=== PATIENT | female | born 1950 | race Caucasian/White ===

== ENCOUNTER 2017-12-06 14:02 | Observation (INO) | payer MEDICARE, OTHER ==
--- NOTE | 2017-12-06 14:14 | EDM.PDOC ---
ED HPI GENERAL MEDICAL PROBLEM - General Stated Complaint: PT WOULD LIKE TO BE SEEN, SPOKE TO NURSE Time Seen by Provider: 12/06/17 14:06 - History of Present Illness INITIAL COMMENTS - FREE TEXT/NARRATIVE: HISTORY AND PHYSICAL: History of present illness: The patient is a 67-year-old female who was sent from [facility] by Dr. Palmer as her blood work today revealed hypokalemia and he told us that he had been increasing her diuretics and was not surprised but want her to be re-seen. The patient presents to triage and is somewhat annoyed that she is here in the ED as she feels that she already was worked up at the clinic. The patient said that she had significant fluid retention which required her provider to give her more potent diuretics and she's never had a history of congestive heart failure but she has had a CABG. The patient currently is on 60 mg of Lasix twice a day and metolazone 2.5 mg daily but she says that the doctor told her to stop the metolazone today. She says that the fluid retention has significantly improved but she still feels like her abdomen is bloated. She also says that she feels profoundly weak and drained and very fatigued but is not passing out or blacking out but does feel lightheaded. She says that she has generalized weakness but no chest pain no shortness of breath no abdominal pain and no focal weakness or falls. She says that she has been feeling somewhat 5 in her head but she can't concentrate and all of these symptoms have been ongoing for the last 5 days. She said that her edema of the remainder of her body a significantly improved and when she initially was placed on the medications for diuresis she was putting out a good amount of urine output but lately it has not been as good. She also tells me that her diabetes is not well controlled over the last several weeks and she has an insulin pump but she has been having to give herself extra insulin for sugars in the 400s. She denies any urinary complaints and has been eating her normal diet but has not had much of an appetite of late. She says that her last hemoglobin C was greater than 3 months ago. Patient says that she does feel so drained that she doesn't feel that she can do her activities of daily living. Headache neck pain or back pain is not had fevers or chills. The patient had CBC and CMP are performed at [facility] and those results are indicated below Review of systems: As per history of present illness and below otherwise all systems reviewed and negative. Past medical history: As per history of present illness and as reviewed below otherwise noncontributory. Surgical history: As per history of present illness and as reviewed below otherwise noncontributory. Social history: No reported history of drug or alcohol abuse. Family history: As per history of present illness and as reviewed below otherwise noncontributory. Physical exam: General: Well-developed well-nourished overweight female who is nontoxic and moves easily in the ED but is very slow with these movements. Vital signs are noted by me HEENT: Atraumatic, normocephalic, pupils reactive, negative for conjunctival pallor or scleral icterus, mucous membranes tacky, throat clear, neck supple, nontender, trachea midline. Lungs: Clear to auscultation, breath sounds equal bilaterally, chest nontender. Slightly diminished breath sounds in the bases but no rales or wheezing or stridor Heart: S1S2, regular rate and rhythm no overt murmurs Abdomen: Soft, nondistended, nontender. Negative for masses or hepatosplenomegaly. Slightly hypoactive bowel sounds Pelvis: Stable nontender. Genitourinary: Deferred. Rectal: Deferred. Extremities: Atraumatic, negative for cords or calf pain. Neurovascular unremarkable. No gross pedal edema just trace bilaterally Neuro: Awake, alert, oriented. Cranial nerves II through XII unremarkable. Cerebellum unremarkable. Motor and sensory unremarkable throughout. Exam nonfocal. Diagnostics: Patient had CBC performed this morning at 11 AM which revealed a WBC count of 10.95 hemoglobin of 16.3 and platelet count of 243 with an insignificant differential, and a CMP which revealed a glucose of 270 7BUN of 32 creatinine of 1.06 sodium of 1:30 potassium of 2.4 and bicarbonate of 40. LFTs were within normal limits except for bilirubin of 1.3. Here in the ED I have ordered EKG BNP troponin TSH UA hemoglobin A1c magnesium level and chest x-ray Therapeutics: IV O2 monitor potassium orally and IV, small IV fluid bolus 1642: Dr Xie is aware of this case and except for observation admission. Patient is also aware of all results and is agreeable for observation admission Impression: Generalized weakness and fatigue with hypokalemia status post diuretic use; likely intravascular dehydration secondary to diuretic use Definitive disposition and diagnosis as appropriate pending reevaluation and review of above. - Related Data Allergies Allergy/AdvReac Type Severity Reaction Status Date / Time ciprofloxacin [From Cipro] Allergy Vomiting Verified 12/06/17 14:27 Home Meds: Home Meds Albuterol [Proair HFA] 2 puff INH Q4HR PRN 12/12/14 [History] Aspirin [Lamont Chewable] 81 mg PO DAILY 12/12/14 [History] FLUoxetine HCl [Fluoxetine] 40 mg PO DAILY 12/12/14 [History] Furosemide 40 mg PO BID 12/12/14 [History] Losartan Potassium 25 mg PO DAILY 12/12/14 [History] Metoprolol Succinate [Toprol XL] 12.5 mg PO DAILY 12/12/14 [History] Insulin Aspart [NovoLOG] 110 units SUBCUT DAILY 12/06/17 [History] Sertraline [Zoloft] 100 mg PO DAILY 12/06/17 [History] Past Medical History Other Genitourinary History: x 2 Other Endocrine/Metabolic History: goiter ED ROS GENERAL - Review of Systems Review Of Systems: ROS reveals no pertinent complaints other than HPI. ED EXAM, GENERAL - Physical Exam Exam: See Below (See dictation) Course - Vital Signs Last Recorded V/S: Last Vital Signs Temp 36.4 C 12/06/17 14:22 Pulse 80 12/06/17 14:22 Resp 18 12/06/17 14:22 BP 162/57 H 12/06/17 14:22 Pulse Ox 92 L 12/06/17 14:22 - Orders/Labs/Meds Orders: Active Orders 24 hr Category Date Time Status Patient Status [ADT] Stat ADT 12/06/17 16:14 Active Cardiac Monitoring [RC] . DIRECTED Care 12/06/17 14:35 Active EKG Documentation Completion [RC] STAT Care 12/06/17 14:35 Active Oxygen Therapy, ED [RC] ASDIRECTED Care 12/06/17 14:35 Active Pulse Oximetry [RC] ASDIRECTED Care 12/06/17 14:35 Active Chest 1V Frontal [CR] Stat Exams 12/06/17 14:36 Taken UA W/MICROSCOPIC [URIN] Stat Lab 12/06/17 14:36 Ordered Potassium Chloride 40 meq Med 12/06/17 14:45 Active Sodium Chloride 0.9% [Normal Saline] 250 ml IV ASDIRECTED Sodium Chloride 0.9% [Normal Saline] 250 ml Med 12/06/17 15:45 Active IV STAT Sodium Chloride 0.9% [Saline Flush] Med 12/06/17 14:36 Active 10 ml FLUSH ASDIRECTED PRN Sodium Chloride 0.9% [Saline Flush] Med 12/06/17 14:36 Active 2.5 ml FLUSH ASDIRECTED PRN Saline Lock Insert [OM.PC] Stat Oth 12/06/17 14:35 Ordered Medication Orders Potassium Chloride 40 meq/ (Sodium Chloride) 270 mls @ 70 mls/hr IV ASDIRECTED [place] Last Admin: 12/06/17 15:31 Dose: 70 mls/hr Sodium Chloride (Normal Saline) 250 mls @ 999 mls/hr IV STAT [place] Sodium Chloride (Saline Flush) 10 ml FLUSH ASDIRECTED PRN PRN Reason: Keep Vein Open Sodium Chloride (Saline Flush) 2.5 ml FLUSH ASDIRECTED PRN PRN Reason: Keep Vein Open Labs: Laboratory Tests 12/06/17 12/06/17 12/06/17 Range/Units 15:35 15:35 15:35 Hemoglobin A1c 7.3 H (4.5-6.2) % Magnesium 2.8 H (1.8-2.4) mg/dL Troponin I < 0.050 (0.000-0.056) ng/mL B-Natriuretic Peptide 49 (<100) PG/ML TSH 3rd Generation 1.27 (0.36-3.74) uIU/mL Meds: Medications Generic Name Dose Route Start Last Admin Trade Name Freq PRN Reason Stop Dose Admin Potassium Chloride 40 meq/ 270 mls @ 70 mls/hr 12/06/17 14:45 12/06/17 15:31 Sodium Chloride IV 70 mls/hr ASDIRECTED [place] Administration Sodium Chloride 250 mls @ 999 mls/hr 12/06/17 15:45 Normal Saline IV STAT [place] Sodium Chloride 10 ml 12/06/17 14:36 Saline Flush FLUSH ASDIRECTED PRN Keep Vein Open Sodium Chloride 2.5 ml 12/06/17 14:36 Saline Flush FLUSH ASDIRECTED PRN Keep Vein Open Discontinued Medications Generic Name Dose Route Start Last Admin Trade Name Freq PRN Reason Stop Dose Admin Potassium Chloride 40 meq 12/06/17 14:36 12/06/17 14:59 Klor-Con M20 PO 12/06/17 14:37 40 meq ONETIME ONE Administration Departure - Departure Time of Disposition: 16:21 Disposition: Refer to Observation Condition: Good Clinical Impression: Hypokalemia, Generalized weakness - Discharge Information Referrals: Sammy Palmer MD [Primary Care Provider] - - My Orders Last 24 Hours: My Active Orders 12/06/17 14:35 Cardiac Monitoring [RC] . DIRECTED EKG Documentation Completion [RC] STAT Oxygen Therapy, ED [RC] ASDIRECTED Pulse Oximetry [RC] ASDIRECTED Saline Lock Insert [OM.PC] Stat 12/06/17 14:36 Chest 1V Frontal [CR] Stat UA W/MICROSCOPIC [URIN] Stat Sodium Chloride 0.9% [Saline Flush] 10 ml FLUSH ASDIRECTED PRN Sodium Chloride 0.9% [Saline Flush] 2.5 ml FLUSH ASDIRECTED PRN 12/06/17 14:45 Potassium Chloride 40 meq Sodium Chloride 0.9% [Normal Saline] 250 ml IV ASDIRECTED 12/06/17 15:45 Sodium Chloride 0.9% [Normal Saline] 250 ml IV STAT 12/06/17 16:14 Patient Status [ADT] Stat - Assessment/Plan Last 24 Hours: My Active Orders 12/06/17 14:35 Cardiac Monitoring [RC] . DIRECTED EKG Documentation Completion [RC] STAT Oxygen Therapy, ED [RC] ASDIRECTED Pulse Oximetry [RC] ASDIRECTED Saline Lock Insert [OM.PC] Stat 12/06/17 14:36 Chest 1V Frontal [CR] Stat UA W/MICROSCOPIC [URIN] Stat Sodium Chloride 0.9% [Saline Flush] 10 ml FLUSH ASDIRECTED PRN Sodium Chloride 0.9% [Saline Flush] 2.5 ml FLUSH ASDIRECTED PRN 12/06/17 14:45 Potassium Chloride 40 meq Sodium Chloride 0.9% [Normal Saline] 250 ml IV ASDIRECTED 12/06/17 15:45 Sodium Chloride 0.9% [Normal Saline] 250 ml IV STAT 12/06/17 16:14 Patient Status [ADT] Stat
[2017-12-06] MEDS ORDERED: Sodium Chloride 0.9% 10 ML Syringe FLUSH PRN ×2 (14:36→20:08)
[2017-12-06] MEDS ORDERED: Potassium Chloride 20 MEQ Tab.ER PO ONE (14:36)
[2017-12-06] MEDS ORDERED: Sodium Chloride 0.9% 2.5 ML Syringe FLUSH PRN ×2 (14:36→20:08)
[2017-12-06] MEDS ORDERED: Sodium Chloride 0.9% 250 ML IV SCH (15:45)
[2017-12-06] MEDS ORDERED: Albuterol/Ipratropium 3.0-0.5 MG/3 ML Neb Soln NEB PRN (20:08)
[2017-12-06] MEDS ORDERED: Morphine 10 MG/ML Syringe IVPUSH PRN (20:08)
--- NOTE | 2017-12-06 20:22 | PCM.HP ---
H&P History of Present Illness - General Admit Problem/Dx: Admission Diagnosis/Problem Admission Diagnosis/Problem Hypokalemia - Related Data Allergies/Adverse Reactions: Allergies Allergy/AdvReac Type Severity Reaction Status Date / Time ciprofloxacin [From Cipro] Allergy Vomiting Verified 12/06/17 14:27 Home Medications: Home Meds Albuterol [Proair HFA] 2 puff INH Q4HR PRN 12/12/14 [History] Aspirin [Lamont Chewable] 81 mg PO DAILY 12/12/14 [History] FLUoxetine HCl [Fluoxetine] 40 mg PO DAILY 12/12/14 [History] Furosemide 40 mg PO BID 12/12/14 [History] Losartan Potassium 25 mg PO DAILY 12/12/14 [History] Metoprolol Succinate [Toprol XL] 12.5 mg PO DAILY 12/12/14 [History] Insulin Aspart [NovoLOG] 110 units SUBCUT DAILY 12/06/17 [History] Sertraline [Zoloft] 100 mg PO DAILY 12/06/17 [History] Past Medical History HEENT History: Reports: Impaired Vision Cardiovascular History: Reports: Bypass, Heart Murmur, Hypertension Respiratory History: Reports: Asthma, Sleep Apnea Other Genitourinary History: x 2 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: Other OB/BYN History: x2 Musculoskeletal History: Reports: Fibromyalgia, Osteoarthritis, Other (See Below ) Neurological History: Reports: Neuropathy, Diabetic Psychiatric History: Reports: Anxiety, Depression Endocrine/Metabolic History: Reports: Diabetes, Type I Other Endocrine/Metabolic History: goiter - Infectious Disease History Infectious Disease History: Reports: Chicken Pox - Past Surgical History Other Cardiovascular Surgeries/Procedures: open heart surgery 2001 Female Surgical History: Reports: Section Other Female Surgeries/Procedures: x2 Social & Family History - Family History Family Medical History: Noncontributory - Tobacco Use Smoking Status *Q: Former Smoker Used Tobacco, but Quit: Yes Month/Year Tobacco Last Used: 50 - Caffeine Use Caffeine Use: Reports: Coffee Other Caffeine Use: 1 cup - Recreational Drug Use Recreational Drug Use: No Exam - Vital Signs Vital Signs: Last Vital Signs Temp 97.1 F 12/06/17 20:00 Pulse 81 12/06/17 20:00 Resp 18 12/06/17 20:00 BP 129/55 L 12/06/17 20:00 Pulse Ox 98 12/06/17 20:00 Weight: 247 lb - Patient Data Lab Results Last 24 hrs: Laboratory Results - last 24 hr 12/06/17 12/06/17 12/06/17 Range/Units 15:35 15:35 15:35 Hemoglobin A1c 7.3 H (4.5-6.2) % Magnesium 2.8 H (1.8-2.4) mg/dL Troponin I < 0.050 (0.000-0.056) ng/mL B-Natriuretic Peptide 49 (<100) PG/ML TSH 3rd Generation 1.27 (0.36-3.74) uIU/mL Orders Last 24hrs: Active Orders 24 hr Category Date Time Status Patient Status [ADT] Stat ADT 12/06/17 16:14 Active Cardiac Monitoring [RC] CONTINUOUS Care 12/06/17 20:09 Active Cardiac Monitoring [RC] Q8H Care 12/06/17 14:35 Active Oxygen Therapy [RC] PRN Care 12/06/17 20:08 Active Pulse Oximetry [RC] ASDIRECTED Care 12/06/17 14:35 Active RT Aerosol Therapy [RC] ASDIRECTED Care 12/06/17 20:12 Active Up ad Eliane [RC] ASDIRECTED Care 12/06/17 20:08 Active Vital Signs [RC] Q4H Care 12/06/17 20:08 Active [employer] [employer] Diet [DIET] Diet 12/07/17 Breakfast Active Chest 1V Frontal [CR] Stat Exams 12/06/17 14:36 Taken Echo 2D wo Cont [US] Urgent Exams 12/06/17 20:17 Ordered CBC WITH AUTO DIFF [HEME] AM Lab 12/07/17 05:11 Ordered CBC WITH AUTO DIFF [HEME] AM Lab 12/08/17 05:11 Ordered CBC WITH AUTO DIFF [HEME] AM Lab 12/09/17 05:11 Ordered CBC WITH AUTO DIFF [HEME] AM Lab 12/10/17 05:11 Ordered COMPREHENSIVE METABOLIC PN,CMP [CHEM] AM Lab 12/07/17 05:11 Ordered COMPREHENSIVE METABOLIC PN,CMP [CHEM] AM Lab 12/08/17 05:11 Ordered COMPREHENSIVE METABOLIC PN,CMP [CHEM] AM Lab 12/09/17 05:11 Ordered COMPREHENSIVE METABOLIC PN,CMP [CHEM] AM Lab 12/10/17 05:11 Ordered MAGNESIUM [CHEM] AM Lab 12/07/17 05:11 Ordered MAGNESIUM [CHEM] AM Lab 12/08/17 05:11 Ordered MAGNESIUM [CHEM] AM Lab 12/09/17 05:11 Ordered PHOSPHORUS [CHEM] AM Lab 12/07/17 05:11 Ordered PHOSPHORUS [CHEM] AM Lab 12/08/17 05:11 Ordered PHOSPHORUS [CHEM] AM Lab 12/09/17 05:11 Ordered PHOSPHORUS [CHEM] AM Lab 12/10/17 05:11 Ordered UA W/MICROSCOPIC [URIN] Stat Lab 12/06/17 14:36 Ordered Albuterol/Ipratropium [DuoNeb 3.0-0.5 MG/3 ML] Med 12/06/17 20:08 Active 3 ml NEB Q4HRRT PRN Aspirin Med 12/07/17 09:00 Active 81 mg PO DAILY Enoxaparin [Lovenox] Med 12/06/17 20:15 Ordered 40 mg SUBCUT Q24H FLUoxetine [PROzac] Med 12/07/17 09:00 Active 40 mg PO DAILY Insulin Aspart [NovoLOG] Med 12/07/17 09:00 Active 110 unit SUBCUT DAILY Losartan [Cozaar] Med 12/07/17 09:00 Active 25 mg PO DAILY Metoprolol Succinate [Toprol XL] Med 12/07/17 09:00 Active 12.5 mg PO DAILY Morphine Med 12/06/17 20:08 Active 2 mg IVPUSH Q2H PRN Potassium Chloride 40 meq Med 12/06/17 14:45 Active Sodium Chloride 0.9% [Normal Saline] 250 ml IV ASDIRECTED Sertraline [Zoloft] Med 12/07/17 09:00 Active 100 mg PO DAILY Sodium Chloride 0.9% [Normal Saline] 250 ml Med 12/06/17 15:45 Active IV STAT Sodium Chloride 0.9% [Saline Flush] Med 12/06/17 14:36 Active 10 ml FLUSH ASDIRECTED PRN Sodium Chloride 0.9% [Saline Flush] Med 12/06/17 20:08 Active 10 ml FLUSH ASDIRECTED PRN Sodium Chloride 0.9% [Saline Flush] Med 12/06/17 14:36 Active 2.5 ml FLUSH ASDIRECTED PRN Sodium Chloride 0.9% [Saline Flush] Med 12/06/17 20:08 Active 2.5 ml FLUSH ASDIRECTED PRN Peripheral IV Insertion Adult [OM.PC] Routine Oth 12/06/17 20:08 Ordered Saline Lock Insert [OM.PC] Stat Oth 12/06/17 14:35 Ordered Sequential Compression Device [OM.PC] Per Unit Routine Oth 12/06/17 20:09 Ordered Resuscitation Status Routine Resus Stat 12/06/17 20:08 Ordered Medication Orders Albuterol/Ipratropium (Duoneb 3.0-0.5 Mg/3 Ml) 3 ml NEB Q4HRRT PRN PRN Reason: Shortness Of Breath/wheezing Aspirin (Aspirin) 81 mg PO DAILY [place] Enoxaparin Sodium (Lovenox) 40 mg SUBCUT Q24H [place] Fluoxetine HCl (Prozac) 40 mg PO DAILY [facility] Potassium Chloride 40 meq/ (Sodium Chloride) 270 mls @ 70 mls/hr IV ASDIRECTED [place] Last Admin: 12/06/17 15:31 Dose: 70 mls/hr Sodium Chloride (Normal Saline) 250 mls @ 999 mls/hr IV STAT [facility] Insulin Aspart (Novolog) 110 unit SUBCUT DAILY [facility] Losartan Potassium (Cozaar) 25 mg PO DAILY [facility] Metoprolol Succinate (Toprol Xl) 12.5 mg PO DAILY [facility] Morphine Sulfate (Morphine) 2 mg IVPUSH Q2H PRN PRN Reason: Pain (severe 7-10) Stop: 12/07/17 20:10 Sertraline HCl (Zoloft) 100 mg PO DAILY [place] Sodium Chloride (Saline Flush) 10 ml FLUSH ASDIRECTED PRN PRN Reason: Keep Vein Open Sodium Chloride (Saline Flush) 2.5 ml FLUSH ASDIRECTED PRN PRN Reason: Keep Vein Open Sodium Chloride (Saline Flush) 10 ml FLUSH ASDIRECTED PRN PRN Reason: Keep Vein Open Sodium Chloride (Saline Flush) 2.5 ml FLUSH ASDIRECTED PRN PRN Reason: Keep Vein Open
[2017-12-06] MEDS ORDERED: Enoxaparin 40 MG/0.4 ML Syringe SUBCUT SCH (22:00)
[2017-12-06] MEDS ORDERED: Nitroglycerin 2% Oint 1 GM UD Packet TOP PRN (22:04)
[2017-12-06] MEDS ORDERED: Sodium Chloride 0.9% 1,000 ML IV SCH (22:30)
[2017-12-06] MEDS ORDERED: Sodium Chloride 0.9% with KCl 1,000 ML ONE (23:43)
[2017-12-06] MEDS: Sodium Chloride 0.9% with KCl 1,000 ML IV SCH ×2 (23:47)
--- NOTE | 2017-12-07 01:36 | HP ---
DATE OF : 1950 PRIMARY CARE PHYSICIAN: Sammy Palmer MD HISTORY OF PRESENT ILLNESS: The patient is a 67-year-old female with past medical history of diabetes mellitus type 1 for 55 years, presented to hospital because she states she is feeling very weak for the past 5 days, and she is very fatigued. She is able only to get out of bed to eat and goes back in the bed and sleeps. The patient lost about 20 pounds in the past 20 days. She says she was on chronic Lasix 20 mg a day for many years, but few weeks ago, she got significant swelling of the legs, and she went to her primary care physician, who increased Lasix and started her on Lasix 60 mg p.o. b.i.d. with metolazone 2.5 mg daily. Also, she was given potassium supplementation. The patient also states her mind is foggy, and she stumbles and has neuropathy. PAST MEDICAL HISTORY: The patient has type 1 diabetes. She has a history of coronary artery disease. She is status post CABG in 2001 at age 51. She has sleep apnea, and she is on CPAP at night. The patient says that she had a stress test with her community marketing manager in [place] and was told that her stress test was good. This was done at the beginning of the year. ALLERGIES: . She has vomiting with ciprofloxacin. PAST SURGICAL HISTORY: She had 2 C-sections, 8 hand surgeries, carpal tunnel syndrome surgery, trigger finger surgery, and tonsillectomy when she was in the third grade. SOCIAL HISTORY: She used to smoke for 5 years only and quit this at age 52. Alcohol use, none. Drug use, none. FAMILY HISTORY: Her mom at age 89 and her father at 91. Her father had diabetes mellitus type 2 and myocardial infarction. REVIEW OF SYSTEMS: A 12-point review of systems is negative except as in history of present illness. DIAGNOSTIC DATA: Her EKG shows sinus rate at 75, probable right atrial enlargement, P more than 50 milliseconds and less than 0.1 mV in V1, right axis deviation, and minimal ST depression in inferior leads. Prolonged QT at 547. Chest x-ray, no active cardiopulmonary disease. LABORATORY DATA: At admission, her WBC was 10.95, hemoglobin 16.3, hematocrit 48.7, and platelet count is 243, neutrophils out of 73%, monocytes out of 8.9%, lymphocytes 16.8, and eosinophils out of 0.8%. Glucose level 277, calcium 9.5, BUN 32, creatinine 1.06 with GFR 52, sodium level 130, potassium level 2.4, chloride 81, CO2 of 40, and anion gap 9. Total protein 7.2, albumin level 4.1, alkaline phosphatase 68, ALT 12, AST 15, and bilirubin total 1.3. The patient also had hemoglobin A1c done in the emergency room, which showed A1c 7.2. Magnesium was 2.8. Troponin less than 0.05. BNP was 49, and TSH was 1.27. MEDICATIONS AT HOME: The patient at home is on: 1. Aspirin 81 mg p.o. daily. 2. Furosemide 60 mg twice a day. 3. Insulin aspart, on insulin pump. 4. Losartan 25 mg p.o. daily. 5. Metolazone 2.5 mg p.o. daily. 6. Metoprolol 12.5 mg everyday. 7. Potassium chloride 20 mEq oral tablet extended release. 8. Sertraline 100 mg tablet p.o. daily. PHYSICAL EXAMINATION: VITAL SIGNS: At admission, her temperature 97.5, pulse 80, blood pressure 162/57, respiratory rate 18, and oxygen saturation was 92%. HEENT: The patient's head is atraumatic and normocephalic. Pupils equally reactive to light. NECK: Supple. No thyromegaly. No lymphadenopathy. HEART: S1 and S2. Regular rhythm and rate. No murmur. LUNGS: Clear to auscultation bilateral. ABDOMEN: Soft and nontender. Positive bowel sounds. The patient has insulin pump attached to her abdomen. EXTREMITIES: No edema. SKIN: Decreased turgor of the skin. ASSESSMENT AND PLAN: 1.Dehydration with hemoconcentration. We will start the patient on IV fluids normal saline with 40 mEq of potassium chloride, and we will follow up potassium level in the morning 2. .Hypokalemia. The patient received in the emergency room potassium chloride 40 mEq p.o., and she was started on IV fluids with 40 mEq of potassium chloride IV. We will continue the patient with normal saline with 40 mEq of potassium chloride IV. We will follow up potassium level in the morning. The patient also will be supplemented with oral potassium chloride. We will order lipid profile in the morning because the patient has coronary artery disease and her vitamin B12 level. 3. Coronary artery disease. We will continue the patient with aspirin 81 mg p.o. daily. We will continue the patient with losartan 25 mg p.o. daily and metoprolol 12.5 mg p.o. daily. We will order cardiac echo. 4. For ischemia on EKG, the patient will be given nitroglycerin paste, and she will be monitored in telemetry. The patient to have Cardiology f/up because of abnormal EKG. 5. History of fluid overload We will check cardiac echo to rule out pulmonary hypertension or right heart failure. Also, we will do abdominal ultrasound to evaluate liver. 6. For deep venous thrombosis prophylaxis, the patient will be given Lovenox 40 mg subcutaneous q.24 hours. ANTOPET / MODL /[id number] MTDD
[2017-12-07] MEDS ORDERED: Losartan 50 MG Tab PO SCH (09:00)
[2017-12-07] MEDS ORDERED: Aspirin 81 MG Tab.Chew PO SCH (09:00)
[2017-12-07] MEDS ORDERED: Sertraline 100 MG Tab PO SCH (09:00)
[2017-12-07] MEDS ORDERED: Insulin Aspart 100 Units/ML 3 ML Pen SUBCUT SCH (09:00)
[2017-12-07] MEDS ORDERED: FLUoxetine 20 MG Cap PO SCH (09:00)
[2017-12-07] MEDS ORDERED: Metoprolol Succinate 25 MG Tab.ER PO SCH (09:00)
[2017-12-07] MEDS ORDERED: Sodium Chloride 0.9% with KCl 1,000 ML ONE (10:08)
[2017-12-07] MEDS: Sodium Chloride 0.9% with KCl 1,000 ML IV SCH ×2 (10:11)
[2017-12-07] MEDS ORDERED: Potassium Chloride 20 MEQ Tab.ER PO ONE (11:44)
[2017-12-07] MEDS ORDERED: Sodium Chloride 0.9% with KCl 1,000 ML IV SCH (11:45)
[2017-12-07 14:40] VITALS: BP 115/56
--- NOTE | 2017-12-07 15:00 | PCM.PN ---
- Review of Systems Systems Review Comment:: feeling better, feeling stronger. - Patient Data Vitals - Most Recent: Last Vital Signs Temp 37.0 C 12/07/17 12:00 Pulse 67 12/07/17 12:00 Resp 16 12/07/17 12:00 BP 115/56 L 12/07/17 12:00 Pulse Ox 96 12/07/17 12:00 Weight - Most Recent: 62.6 kg I&O - Last 24 Hours: Intake & Output 12/06/17 12/07/17 12/07/17 22:59 06:59 14:59 Intake Total 600 Output Total 150 Balance 450 Lab Results Last 24 Hours: Laboratory Results - last 24 hr 12/06/17 12/06/17 12/06/17 Range/Units 15:35 15:35 15:35 WBC (4.0-11.0) K/uL RBC (4.30-5.90) M/uL Hgb (12.0-16.0) g/dL Hct (36.0-46.0) % MCV (80.0-98.0) fL MCH (27.0-32.0) pg MCHC (31.0-37.0) g/dL RDW Std Deviation (28.0-62.0) fl RDW Coeff of Judd (11.0-15.0) % Plt Count (150-400) K/uL MPV (7.40-12.00) fL Neut % (Auto) (48.0-80.0) % Lymph % (Auto) (16.0-40.0) % [place] % (Auto) (0.0-15.0) % Eos % (Auto) (0.0-7.0) % Baso % (Auto) (0.0-1.5) % Neut # (Auto) (1.4-5.7) K/uL Lymph # (Auto) (0.6-2.4) K/uL [place] # (Auto) (0.0-0.8) K/uL Eos # (Auto) (0.0-0.7) K/uL Baso # (Auto) (0.0-0.1) K/uL Nucleated RBC % /100WBC Nucleated RBCs # K/uL Sodium (136-145) mmol/L Potassium (3.5-5.1) mmol/L Chloride (98-107) mmol/L Carbon Dioxide (21.0-32.0) mmol/L BUN (7.0-18.0) mg/dL Creatinine (0.6-1.0) mg/dL Est Cr Clr Drug Dosing mL/min Estimated GFR (MDRD) ml/min Glucose (74-106) mg/dL POC Glucose (60-110) mg/dL Hemoglobin A1c 7.3 H (4.5-6.2) % Calcium (8.5-10.1) mg/dL Phosphorus (2.6-4.7) mg/dL Magnesium 2.8 H (1.8-2.4) mg/dL Total Bilirubin (0.2-1.0) mg/dL AST (15-37) IU/L ALT (14-63) IU/L Alkaline Phosphatase (46-116) U/L Troponin I < 0.050 (0.000-0.056) ng/mL B-Natriuretic Peptide 49 (<100) PG/ML Total Protein (6.4-8.2) g/dL Albumin (3.4-5.0) g/dL Globulin (2.0-3.5) g/dL Albumin/Globulin Ratio (1.3-2.8) TSH 3rd Generation 1.27 (0.36-3.74) uIU/mL Urine Color Urine Appearance Urine pH (5.0-8.0) Ur Specific [place] (1.001-1.035) Urine Protein (NEGATIVE) mg/dL Urine Glucose (UA) (NEGATIVE) mg/dL Urine Ketones (NEGATIVE) mg/dL Urine Occult Blood (NEGATIVE) Urine Nitrite (NEGATIVE) Urine Bilirubin (NEGATIVE) Urine Urobilinogen (<2.0) EU/dL Ur Leukocyte Esterase (NEGATIVE) Urine RBC (0-2/HPF) Urine WBC (0-5/HPF) Ur Epithelial Cells (NONE-FEW) Urine Bacteria (NEGATIVE) 12/06/17 12/07/17 12/07/17 Range/Units 21:46 06:48 06:48 WBC 9.70 (4.0-11.0) K/uL RBC 4.61 (4.30-5.90) M/uL Hgb 15.0 (12.0-16.0) g/dL Hct 43.6 (36.0-46.0) % MCV 94.6 (80.0-98.0) fL MCH 32.5 H (27.0-32.0) pg MCHC 34.4 (31.0-37.0) g/dL RDW Std Deviation 44.6 (28.0-62.0) fl RDW Coeff of Judd 13 (11.0-15.0) % Plt Count 186 (150-400) K/uL MPV 11.60 (7.40-12.00) fL Neut % (Auto) 56.3 (48.0-80.0) % Lymph % (Auto) 25.5 (16.0-40.0) % [place] % (Auto) 15.1 H (0.0-15.0) % Eos % (Auto) 2.4 (0.0-7.0) % Baso % (Auto) 0.7 (0.0-1.5) % Neut # (Auto) 5.5 (1.4-5.7) K/uL Lymph # (Auto) 2.5 H (0.6-2.4) K/uL [place] # (Auto) 1.5 H (0.0-0.8) K/uL Eos # (Auto) 0.2 (0.0-0.7) K/uL Baso # (Auto) 0.1 (0.0-0.1) K/uL Nucleated RBC % 0.0 /100WBC Nucleated RBCs # 0 K/uL Sodium 137 (136-145) mmol/L Potassium 3.0 L (3.5-5.1) mmol/L Chloride 97 L (98-107) mmol/L Carbon Dioxide 39.7 H (21.0-32.0) mmol/L BUN 28 H (7.0-18.0) mg/dL Creatinine 1.0 (0.6-1.0) mg/dL Est Cr Clr Drug Dosing 50.39 mL/min Estimated GFR (MDRD) 55.6 ml/min Glucose 63 L (74-106) mg/dL POC Glucose 409 H (60-110) mg/dL Hemoglobin A1c (4.5-6.2) % Calcium 8.9 (8.5-10.1) mg/dL Phosphorus 3.0 (2.6-4.7) mg/dL Magnesium 2.8 H (1.8-2.4) mg/dL Total Bilirubin 0.9 (0.2-1.0) mg/dL AST 12 L (15-37) IU/L ALT 16 (14-63) IU/L Alkaline Phosphatase 66 (46-116) U/L Troponin I (0.000-0.056) ng/mL B-Natriuretic Peptide (<100) PG/ML Total Protein 6.7 (6.4-8.2) g/dL Albumin 3.1 L (3.4-5.0) g/dL Globulin 3.6 H (2.0-3.5) g/dL Albumin/Globulin Ratio 0.9 L (1.3-2.8) TSH 3rd Generation (0.36-3.74) uIU/mL Urine Color Urine Appearance Urine pH (5.0-8.0) Ur Specific [place] (1.001-1.035) Urine Protein (NEGATIVE) mg/dL Urine Glucose (UA) (NEGATIVE) mg/dL Urine Ketones (NEGATIVE) mg/dL Urine Occult Blood (NEGATIVE) Urine Nitrite (NEGATIVE) Urine Bilirubin (NEGATIVE) Urine Urobilinogen (<2.0) EU/dL Ur Leukocyte Esterase (NEGATIVE) Urine RBC (0-2/HPF) Urine WBC (0-5/HPF) Ur Epithelial Cells (NONE-FEW) Urine Bacteria (NEGATIVE) 12/07/17 Range/Units 07:00 WBC (4.0-11.0) K/uL RBC (4.30-5.90) M/uL Hgb (12.0-16.0) g/dL Hct (36.0-46.0) % MCV (80.0-98.0) fL MCH (27.0-32.0) pg MCHC (31.0-37.0) g/dL RDW Std Deviation (28.0-62.0) fl RDW Coeff of Judd (11.0-15.0) % Plt Count (150-400) K/uL MPV (7.40-12.00) fL Neut % (Auto) (48.0-80.0) % Lymph % (Auto) (16.0-40.0) % [place] % (Auto) (0.0-15.0) % Eos % (Auto) (0.0-7.0) % Baso % (Auto) (0.0-1.5) % Neut # (Auto) (1.4-5.7) K/uL Lymph # (Auto) (0.6-2.4) K/uL [place] # (Auto) (0.0-0.8) K/uL Eos # (Auto) (0.0-0.7) K/uL Baso # (Auto) (0.0-0.1) K/uL Nucleated RBC % /100WBC Nucleated RBCs # K/uL Sodium (136-145) mmol/L Potassium (3.5-5.1) mmol/L Chloride (98-107) mmol/L Carbon Dioxide (21.0-32.0) mmol/L BUN (7.0-18.0) mg/dL Creatinine (0.6-1.0) mg/dL Est Cr Clr Drug Dosing mL/min Estimated GFR (MDRD) ml/min Glucose (74-106) mg/dL POC Glucose (60-110) mg/dL Hemoglobin A1c (4.5-6.2) % Calcium (8.5-10.1) mg/dL Phosphorus (2.6-4.7) mg/dL Magnesium (1.8-2.4) mg/dL Total Bilirubin (0.2-1.0) mg/dL AST (15-37) IU/L ALT (14-63) IU/L Alkaline Phosphatase (46-116) U/L Troponin I (0.000-0.056) ng/mL B-Natriuretic Peptide (<100) PG/ML Total Protein (6.4-8.2) g/dL Albumin (3.4-5.0) g/dL Globulin (2.0-3.5) g/dL Albumin/Globulin Ratio (1.3-2.8) TSH 3rd Generation (0.36-3.74) uIU/mL Urine Color YELLOW Urine Appearance SLT CLOUDY Urine pH 7.0 (5.0-8.0) Ur Specific [place] 1.010 (1.001-1.035) Urine Protein NEGATIVE (NEGATIVE) mg/dL Urine Glucose (UA) 500 H (NEGATIVE) mg/dL Urine Ketones NEGATIVE (NEGATIVE) mg/dL Urine Occult Blood NEGATIVE (NEGATIVE) Urine Nitrite NEGATIVE (NEGATIVE) Urine Bilirubin NEGATIVE (NEGATIVE) Urine Urobilinogen 1.0 (<2.0) EU/dL Ur Leukocyte Esterase NEGATIVE (NEGATIVE) Urine RBC 0-2 (0-2/HPF) Urine WBC 1-2 (0-5/HPF) Ur Epithelial Cells FEW (NONE-FEW) Urine Bacteria 3+ H (NEGATIVE) Med Orders - Current: Current Medications Albuterol/Ipratropium (Duoneb 3.0-0.5 Mg/3 Ml) 3 ml NEB Q4HRRT PRN PRN Reason: Shortness Of Breath/wheezing Aspirin (Aspirin) 81 mg PO DAILY [facility] Last Admin: 12/07/17 08:22 Dose: 81 mg Enoxaparin Sodium (Lovenox) 40 mg SUBCUT Q24H [facility] Last Admin: 12/06/17 22:39 Dose: 40 mg Fluoxetine HCl (Prozac) 40 mg PO DAILY [facility] Last Admin: 12/07/17 08:24 Dose: 40 mg Sodium Chloride (Normal Saline) 250 mls @ 999 mls/hr IV STAT [facility] Potassium Chloride/Sodium Chloride (Normal Saline With 40 Meq Kcl) 1,000 mls @ 100 mls/hr IV ASDIRECTED [facility] Last Infusion: 12/07/17 12:27 Dose: 150 mls/hr Potassium Chloride/Sodium Chloride (Normal Saline With 40 Meq Kcl) 1,000 mls @ 150 mls/hr IV ASDIRECTED [facility] Stop: 12/07/17 18:24 Last Admin: 12/07/17 12:19 Dose: Not Given Losartan Potassium (Cozaar) 25 mg PO DAILY [facility] Last Admin: 12/07/17 08:23 Dose: 25 mg Metoprolol Succinate (Toprol Xl) 12.5 mg PO DAILY [facility] Last Admin: 12/07/17 09:00 Dose: 12.5 mg Miscellaneous Information (Remove Patch) 1 ea TRDERM Q6H PRN PRN Reason: IF NITRO OINT APPLIED Morphine Sulfate (Morphine) 2 mg IVPUSH Q2H PRN PRN Reason: Pain (severe 7-10) Stop: 12/07/17 20:10 Nitroglycerin (Nitro-Bid 2%) 1 gm TOP Q6H PRN PRN Reason: Chest Pain Sertraline HCl (Zoloft) 100 mg PO DAILY [facility] Last Admin: 12/07/17 08:23 Dose: 100 mg Sodium Chloride (Saline Flush) 10 ml FLUSH ASDIRECTED PRN PRN Reason: Keep Vein Open Sodium Chloride (Saline Flush) 2.5 ml FLUSH ASDIRECTED PRN PRN Reason: Keep Vein Open Sodium Chloride (Saline Flush) 10 ml FLUSH ASDIRECTED PRN PRN Reason: Keep Vein Open Sodium Chloride (Saline Flush) 2.5 ml FLUSH ASDIRECTED PRN PRN Reason: Keep Vein Open Discontinued Medications Potassium Chloride 40 meq/ (Sodium Chloride) 270 mls @ 70 mls/hr IV ASDIRECTED [facility] Last Admin: 12/06/17 15:31 Dose: 70 mls/hr Sodium Chloride (Normal Saline) 1,000 mls @ 50 mls/hr IV ASDIRECTED [facility] Last Admin: 12/06/17 22:41 Dose: 50 mls/hr Potassium Chloride/Sodium Chloride (Normal Saline With 40 Meq Kcl) Confirm Administered Dose 1,000 mls @ as directed .ROUTE .STK-MED ONE Stop: 12/06/17 23:44 Last Admin: 12/06/17 23:48 Dose: Not Given Potassium Chloride/Sodium Chloride (Normal Saline With 40 Meq Kcl) Confirm Administered Dose 1,000 mls @ as directed .ROUTE .STK-MED ONE Stop: 12/07/17 10:09 Last Admin: 12/07/17 10:29 Dose: Not Given Potassium Chloride (Klor-Con M20) 40 meq PO ONETIME ONE Stop: 12/06/17 14:37 Last Admin: 12/06/17 14:59 Dose: 40 meq Potassium Chloride (Klor-Con M20) 40 meq PO ONETIME ONE Stop: 12/07/17 11:45 Last Admin: 12/07/17 13:07 Dose: 40 meq - Exam General: Alert, Oriented Neck: Supple Lungs: Clear to Auscultation, Normal Respiratory Effort Cardiovascular: Regular Rate, Regular Rhythm GI/Abdominal Exam: Normal Bowel Sounds, Soft, Non-Tender Extremities: Non-Tender, No Pedal Edema Skin: Warm, Dry, Intact Neurological: No New Focal Deficit - Problem List Review Problem List Initiated/Reviewed/Updated: Yes - My Orders Last 24 Hours: My Active Orders 12/07/17 11:45 Accu Check [Blood Glucose Check, Bedside] [RC] TIDMEALS Sodium Chloride 0.9% with KCl [Normal Saline with 40 mEq KCl] 1,000 ml IV ASDIRECTED 12/07/17 12:21 URINALYSIS W/MICROSCOPIC [UA W/MICROSCOPIC] [URIN] Routine 12/07/17 17:00 BASIC METABOLIC PANEL,BMP [CHEM] Routine - Plan Plan:: 67 yo female admitted for hypokalemia, dehydration and contraction alkalosis. Her diuretics were discontinued. She was given IV and PO potassium last night. Her potassium has improved. She has insulin pump so will be monitor blood glucose.
--- NOTE | 2017-12-07 22:41 | PCM.DCSUM1 ---
Discharge Summary - Discharge Data Discharge Disposition: Home, Self-Care 01 Condition: Stable - Discharge Plan Home Medications: Home Meds Albuterol [Proair HFA] 2 puff INH Q4HR PRN 12/12/14 [History] Aspirin [Lamont Chewable] 81 mg PO DAILY 12/12/14 [History] FLUoxetine HCl [Fluoxetine] 40 mg PO DAILY 12/12/14 [History] Losartan Potassium 25 mg PO DAILY 12/12/14 [History] Metoprolol Succinate [Toprol XL] 12.5 mg PO DAILY 12/12/14 [History] Insulin Aspart [NovoLOG] 110 units SUBCUT DAILY 12/06/17 [History] Sertraline [Zoloft] 100 mg PO DAILY 12/06/17 [History] Patient Handouts: Hypokalemia Referrals: [facility] [Outside] [facility] [Outside] Sergio Guzman MD [Physician] - Sammy Palmer MD [Primary Care Provider] - - Patient Data Vitals - Most Recent: Last Vital Signs Temp 37.0 C 12/07/17 12:00 Pulse 67 12/07/17 12:00 Resp 16 12/07/17 12:00 BP 115/56 L 12/07/17 12:00 Pulse Ox 96 12/07/17 12:00 Weight - Most Recent: 62.6 kg I&O - Last 24 hours: Intake & Output 12/07/17 12/07/17 12/07/17 06:59 14:59 22:59 Intake Total 600 1300 Output Total 150 1350 Balance 450 -50 Lab Results - Last 24 hrs: Laboratory Results - last 24 hr 12/07/17 12/07/17 12/07/17 Range/Units 06:48 06:48 07:00 WBC 9.70 (4.0-11.0) K/uL RBC 4.61 (4.30-5.90) M/uL Hgb 15.0 (12.0-16.0) g/dL Hct 43.6 (36.0-46.0) % MCV 94.6 (80.0-98.0) fL MCH 32.5 H (27.0-32.0) pg MCHC 34.4 (31.0-37.0) g/dL RDW Std Deviation 44.6 (28.0-62.0) fl RDW Coeff of Judd 13 (11.0-15.0) % Plt Count 186 (150-400) K/uL MPV 11.60 (7.40-12.00) fL Neut % (Auto) 56.3 (48.0-80.0) % Lymph % (Auto) 25.5 (16.0-40.0) % [place] % (Auto) 15.1 H (0.0-15.0) % Eos % (Auto) 2.4 (0.0-7.0) % Baso % (Auto) 0.7 (0.0-1.5) % Neut # (Auto) 5.5 (1.4-5.7) K/uL Lymph # (Auto) 2.5 H (0.6-2.4) K/uL [place] # (Auto) 1.5 H (0.0-0.8) K/uL Eos # (Auto) 0.2 (0.0-0.7) K/uL Baso # (Auto) 0.1 (0.0-0.1) K/uL Nucleated RBC % 0.0 /100WBC Nucleated RBCs # 0 K/uL Sodium 137 (136-145) mmol/L Potassium 3.0 L (3.5-5.1) mmol/L Chloride 97 L (98-107) mmol/L Carbon Dioxide 39.7 H (21.0-32.0) mmol/L BUN 28 H (7.0-18.0) mg/dL Creatinine 1.0 (0.6-1.0) mg/dL Est Cr Clr Drug Dosing 50.39 mL/min Estimated GFR (MDRD) 55.6 ml/min Glucose 63 L (74-106) mg/dL POC Glucose (60-110) mg/dL Calcium 8.9 (8.5-10.1) mg/dL Phosphorus 3.0 (2.6-4.7) mg/dL Magnesium 2.8 H (1.8-2.4) mg/dL Total Bilirubin 0.9 (0.2-1.0) mg/dL AST 12 L (15-37) IU/L ALT 16 (14-63) IU/L Alkaline Phosphatase 66 (46-116) U/L Total Protein 6.7 (6.4-8.2) g/dL Albumin 3.1 L (3.4-5.0) g/dL Globulin 3.6 H (2.0-3.5) g/dL Albumin/Globulin Ratio 0.9 L (1.3-2.8) Urine Color YELLOW Urine Appearance SLT CLOUDY Urine pH 7.0 (5.0-8.0) Ur Specific [place] 1.010 (1.001-1.035) Urine Protein NEGATIVE (NEGATIVE) mg/dL Urine Glucose (UA) 500 H (NEGATIVE) mg/dL Urine Ketones NEGATIVE (NEGATIVE) mg/dL Urine Occult Blood NEGATIVE (NEGATIVE) Urine Nitrite NEGATIVE (NEGATIVE) Urine Bilirubin NEGATIVE (NEGATIVE) Urine Urobilinogen 1.0 (<2.0) EU/dL Ur Leukocyte Esterase NEGATIVE (NEGATIVE) Urine RBC 0-2 (0-2/HPF) Urine WBC 1-2 (0-5/HPF) Ur Epithelial Cells FEW (NONE-FEW) Urine Bacteria 3+ H (NEGATIVE) 12/07/17 12/07/17 12/07/17 Range/Units 15:07 17:25 17:44 WBC (4.0-11.0) K/uL RBC (4.30-5.90) M/uL Hgb (12.0-16.0) g/dL Hct (36.0-46.0) % MCV (80.0-98.0) fL MCH (27.0-32.0) pg MCHC (31.0-37.0) g/dL RDW Std Deviation (28.0-62.0) fl RDW Coeff of Judd (11.0-15.0) % Plt Count (150-400) K/uL MPV (7.40-12.00) fL Neut % (Auto) (48.0-80.0) % Lymph % (Auto) (16.0-40.0) % [place] % (Auto) (0.0-15.0) % Eos % (Auto) (0.0-7.0) % Baso % (Auto) (0.0-1.5) % Neut # (Auto) (1.4-5.7) K/uL Lymph # (Auto) (0.6-2.4) K/uL [place] # (Auto) (0.0-0.8) K/uL Eos # (Auto) (0.0-0.7) K/uL Baso # (Auto) (0.0-0.1) K/uL Nucleated RBC % /100WBC Nucleated RBCs # K/uL Sodium 135 L (136-145) mmol/L Potassium 4.0 (3.5-5.1) mmol/L Chloride 101 (98-107) mmol/L Carbon Dioxide 32.3 H (21.0-32.0) mmol/L BUN 27 H (7.0-18.0) mg/dL Creatinine 1.1 H (0.6-1.0) mg/dL Est Cr Clr Drug Dosing 45.81 mL/min Estimated GFR (MDRD) 49.8 ml/min Glucose 108 H (74-106) mg/dL POC Glucose 150 H (60-110) mg/dL Calcium 8.4 L (8.5-10.1) mg/dL Phosphorus (2.6-4.7) mg/dL Magnesium (1.8-2.4) mg/dL Total Bilirubin (0.2-1.0) mg/dL AST (15-37) IU/L ALT (14-63) IU/L Alkaline Phosphatase (46-116) U/L Total Protein (6.4-8.2) g/dL Albumin (3.4-5.0) g/dL Globulin (2.0-3.5) g/dL Albumin/Globulin Ratio (1.3-2.8) Urine Color YELLOW Urine Appearance SLT CLOUDY Urine pH 7.0 (5.0-8.0) Ur Specific [place] 1.015 (1.001-1.035) Urine Protein NEGATIVE (NEGATIVE) mg/dL Urine Glucose (UA) 100 H (NEGATIVE) mg/dL Urine Ketones NEGATIVE (NEGATIVE) mg/dL Urine Occult Blood NEGATIVE (NEGATIVE) Urine Nitrite NEGATIVE (NEGATIVE) Urine Bilirubin NEGATIVE (NEGATIVE) Urine Urobilinogen 1.0 (<2.0) EU/dL Ur Leukocyte Esterase NEGATIVE (NEGATIVE) Urine RBC 0-1 (0-2/HPF) Urine WBC 0-2 (0-5/HPF) Ur Epithelial Cells FEW (NONE-FEW) Urine Bacteria 1+ H (NEGATIVE) Med Orders - Current: Current Medications Discontinued Medications Albuterol/Ipratropium (Duoneb 3.0-0.5 Mg/3 Ml) 3 ml NEB Q4HRRT PRN PRN Reason: Shortness Of Breath/wheezing Aspirin (Aspirin) 81 mg PO DAILY [facility] Last Admin: 12/07/17 08:22 Dose: 81 mg Enoxaparin Sodium (Lovenox) 40 mg SUBCUT Q24H [facility] Last Admin: 12/06/17 22:39 Dose: 40 mg Fluoxetine HCl (Prozac) 40 mg PO DAILY [facility] Last Admin: 12/07/17 08:24 Dose: 40 mg Potassium Chloride 40 meq/ (Sodium Chloride) 270 mls @ 70 mls/hr IV ASDIRECTED [facility] Last Admin: 12/06/17 15:31 Dose: 70 mls/hr Sodium Chloride (Normal Saline) 250 mls @ 999 mls/hr IV STAT [facility] Sodium Chloride (Normal Saline) 1,000 mls @ 50 mls/hr IV ASDIRECTED [facility] Last Admin: 12/06/17 22:41 Dose: 50 mls/hr Potassium Chloride/Sodium Chloride (Normal Saline With 40 Meq Kcl) 1,000 mls @ 100 mls/hr IV ASDIRECTED [facility] Last Infusion: 12/07/17 12:27 Dose: 150 mls/hr Potassium Chloride/Sodium Chloride (Normal Saline With 40 Meq Kcl) Confirm Administered Dose 1,000 mls @ as directed .ROUTE .STK-MED ONE Stop: 12/06/17 23:44 Last Admin: 12/06/17 23:48 Dose: Not Given Potassium Chloride/Sodium Chloride (Normal Saline With 40 Meq Kcl) Confirm Administered Dose 1,000 mls @ as directed .ROUTE .STK-MED ONE Stop: 12/07/17 10:09 Last Admin: 12/07/17 10:29 Dose: Not Given Potassium Chloride/Sodium Chloride (Normal Saline With 40 Meq Kcl) 1,000 mls @ 150 mls/hr IV ASDIRECTED [facility] Stop: 12/07/17 18:24 Last Admin: 12/07/17 12:19 Dose: Not Given Losartan Potassium (Cozaar) 25 mg PO DAILY [facility] Last Admin: 12/07/17 08:23 Dose: 25 mg Metoprolol Succinate (Toprol Xl) 12.5 mg PO DAILY [facility] Last Admin: 12/07/17 09:00 Dose: 12.5 mg Miscellaneous Information (Remove Patch) 1 ea TRDERM Q6H PRN PRN Reason: IF NITRO OINT APPLIED Morphine Sulfate (Morphine) 2 mg IVPUSH Q2H PRN PRN Reason: Pain (severe 7-10) Stop: 12/07/17 20:10 Nitroglycerin (Nitro-Bid 2%) 1 gm TOP Q6H PRN PRN Reason: Chest Pain Potassium Chloride (Klor-Con M20) 40 meq PO ONETIME ONE Stop: 12/06/17 14:37 Last Admin: 12/06/17 14:59 Dose: 40 meq Potassium Chloride (Klor-Con M20) 40 meq PO ONETIME ONE Stop: 12/07/17 11:45 Last Admin: 12/07/17 13:07 Dose: 40 meq Sertraline HCl (Zoloft) 100 mg PO DAILY [place] Last Admin: 12/07/17 08:23 Dose: 100 mg Sodium Chloride (Saline Flush) 10 ml FLUSH ASDIRECTED PRN PRN Reason: Keep Vein Open Sodium Chloride (Saline Flush) 2.5 ml FLUSH ASDIRECTED PRN PRN Reason: Keep Vein Open Sodium Chloride (Saline Flush) 10 ml FLUSH ASDIRECTED PRN PRN Reason: Keep Vein Open Sodium Chloride (Saline Flush) 2.5 ml FLUSH ASDIRECTED PRN PRN Reason: Keep Vein Open
--- NOTE | 2017-12-09 10:36 | CR ---
EXAM DATE: 12/06/17 PATIENT'S AGE: 67 Patient: STUART BUTTERFIELD Facility: [place], [place] Site . Site : [id number] Study: XRay Chest [id number] 3:37:16 PM Ordering Physician: Thalia Villar Final Report: Indication : Pain, diabetes COMPARISON: None. 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 Cardiac and mediastinal silhouettes are normal. The pulmonary vasculature is normal. The lungs are free of infiltrate. IMPRESSION: No active cardiopulmonary disease. Dictated by Elmira Vee MD @ Dec 06 2017 3:43PM (Electronic Signature) Report Signed by Proxy. KERON
== END 2017-12-07 19:15 | disposition home or self-care (01) ==
LOC: MW.ED 14:02 → MW.MS 16:14 → MW.ED 18:31
PROVIDERS: ADMIT Internal Medicine; ATTEND Internal Medicine
DX: E86.0 Dehydration (principal); E87.6 Hypokalemia; R79.89 Other specified abnormal findings of blood chemistry; I25.10 Atherosclerotic heart disease of native coronary artery without angina pectoris; I99.8 Other disorder of circulatory system; E10.9 Type 1 diabetes mellitus without complications; G47.30 Sleep apnea, unspecified; Z99.89 Dependence on other enabling machines and devices; Z88.1 Allergy status to other antibiotic agents; Z79.82 Long term (current) use of aspirin; Z79.899 Other long term (current) drug therapy; Z87.891 Personal history of nicotine dependence
CPT/HCPCS: 36415; 71045; 80048; 80053; 81001; 82962; 83036; 83735; 83880; 84100; 84443; 84484; 85025; 93005; 96365; 96366; 99285; A9270; J1650; J3480; J7040; J7050; 96361; 96372; G0378